=== PATIENT | female | born 1940 | race Caucasian/White ===

== ENCOUNTER → 2016-04-29 | Outpatient (CLI) | payer MEDICARE, OTHER ==
--- NOTE | 2016-04-29 10:16 | RAD ---
EXAM DESCRIPTION: XR PELVIS 1-2 VIEWS CLINICAL HISTORY: FX OF PELVIS COMPARISON: March 29, 2016 FINDINGS: Again seen are bilateral superior and inferior pubic ramus fractures with mild to moderate displacement. Displacement is worse at the left superior pubic ramus, and the fractures appear unchanged in the patient's previous study. The hip joints are anatomically aligned. No femoral head or neck fracture is seen. The pubic symphysis and sacroiliac joints are unremarkable. IMPRESSION: Bilateral superior and inferior pubic ramus fractures with mild to moderate displacement all unchanged from March 29, 2016. The fractures remain largely nonunited. Electronically signed by: Craig Glynn DO 04/29/2016 10:15
== END ==
LOC: RAD 09:06
PROVIDERS: ATTEND Orthopaedic Surgery
DX: S32.2XXD Fracture of coccyx, subsequent encounter for fracture with routine healing (principal); S32.592D Other specified fracture of left pubis, subsequent encounter for fracture with routine healing; S32.591D Other specified fracture of right pubis, subsequent encounter for fracture with routine healing

== ENCOUNTER → 2016-08-20 | Outpatient (CLI) | payer MEDICARE, OTHER | END | disposition home or self-care (01) | LOC: GMAM 14:46 | PROVIDERS: ATTEND Family Medicine | DX: R53.1 Weakness (principal) ==

== ENCOUNTER → 2019-05-31 | Outpatient (CLI) | payer MEDICARE, OTHER | LOC: GMAM 12:31 | PROVIDERS: ATTEND Family Medicine | DX: R79.9 Abnormal finding of blood chemistry, unspecified (principal) ==

== ENCOUNTER 2020-03-14 08:12 | Outpatient (CLI) | payer MEDICARE, OTHER | END 2020-03-15 15:35 | disposition home or self-care (01) | LOC: INFRM 08:12 | PROVIDERS: ATTEND Family Medicine | DX: U07.1 COVID-19 (principal); Z23 Encounter for immunization ==